=== PATIENT | male | born 1975 | race Caucasian/White ===

== ENCOUNTER 2017-04-27 13:14 | Emergency (ER) | payer OTHER ==
--- NOTE | 2017-04-27 15:17 | RAD ---
HISTORY: Subacute trauma COMPARISONS: None TECHNIQUE: Multiple contiguous axial CT scans were obtained of the head without intravenous contrast. FINDINGS: HEMORRHAGE/INFARCT: There is no hemorrhage or acute infarct. MASSES/SHIFT: There is no mass or shift. EXTRA-AXIAL SPACES: There are no extra-axial fluid collections. SULCI AND VENTRICLES: The sulci and ventricles are normal in size and position for the patient's stated age. CEREBRUM: There are no focal parenchymal abnormalities. BRAINSTEM: There are no focal parenchymal abnormalities. CEREBELLUM: There are no focal parenchymal abnormalities. VESSELS: The vessels are grossly normal. PARANASAL SINUSES: The paranasal sinuses are clear. ORBITS: The orbits are unremarkable. BONES AND SOFT TISSUE: No bone or soft tissue abnormalities are noted. OTHER: None IMPRESSION: NO ACUTE INTRACRANIAL PATHOLOGY.
--- NOTE | 2017-04-27 15:19 | RAD ---
HISTORY: Neck pain, subacute trauma COMPARISONS: None TECHNIQUE: Multiple contiguous axial CT scans were obtained of the cervical spine without intravenous contrast, with coronal and sagittal multiplanar reformations. FINDINGS: BRAIN: The visualized brain is unremarkable CENTRAL CANAL: Evaluation of the central canal is limited on CT technique; however, there is no obvious canalicular mass or epidural hemorrhage. ALIGNMENT: The alignment is normal, without subluxation or dislocation. VERTEBRAL BODIES: The odontoid process is intact. The atlantoaxial intervals are symmetric. The vertebral bodies are normal in attenuation, without fracture. JOINTS: There is mild uncovertebral and facet hypertrophy. MUSCULATURE: Unremarkable INTERVERTEBRAL DISCS: There is diffuse loss of intervertebral disc height. AXIAL IMAGES: On axial images, there is mild neural foraminal narrowing at C4-C5 and C6-C7. There is no significant osseous central canal stenosis. SOFT TISSUES: The visualized soft tissues of the neck are unremarkable. The prevertebral fat stripe is preserved. OTHER: None. IMPRESSION: DEGENERATIVE DISC DISEASE AND OSTEOARTHRITIS, WITHOUT ACUTE OSSEOUS INJURY TO THE CERVICAL SPINE
[2017-04-27] MEDS ORDERED: Methocarbamol TAB* 500 MG PO ONE (15:27)
[2017-04-27] MEDS ORDERED: Dexamethasone TAB* 6 MG PO ONE (15:28)
[2017-04-27] MEDS ORDERED: Ibuprofen TAB* 800 MG PO ONE (15:28)
--- NOTE | 2017-04-27 15:32 | ED ---
Neck Pain - HPI Summary HPI Summary: 41M presents with neck pain since last night. He was benching for the first time in years and lifted 230 pounds. He states he struck the back of his head on the bench and felt an immediate pain in his neck. He denies any LOC, nausea or vomiting. He denies any headache, visual changes. He states he has extreme pain in his neck and has not taken anything for his pain. He has limited ROM of his neck due to pain. Today he states he has superficial numbness of his left inner arm that ends at his elbow. He denies any weakness. He is not any blood thinners and has no medical conditions. He denies any chest pain or SOB. - History of Current Complaint Chief Complaint: EDNeckComplaint Stated Complaint: NECK PAIN,NUMBNESS LEFT ARM PAIN Time Seen by Provider: 04/27/17 14:43 Pain Intensity: 8 - Allergies/Home Medications Allergies/Adverse Reactions: Allergies Allergy/AdvReac Type Severity Reaction Status Date / Time No Known Allergies Allergy Verified 04/27/17 17:29 PMH/Surg Hx/FS Hx/Imm Hx Endocrine/Hematology History: Denies: Hx Anticoagulant Therapy Cardiovascular History: Reports: Hx Hypertension Infectious Disease History: No Infectious Disease History: Denies: Traveled Outside the [place] in Last 30 Days - Family History Known Family History: Positive: Other - no history of aneursym - Social History Alcohol Use: Occasionally Substance Use Type: Reports: None Smoking Status (MU): Smoker, Current Status Unknown Review of Systems Negative: Fever Negative: Chest Pain Negative: Shortness Of Breath Positive: Myalgia - neck pain All Other Systems Reviewed And Are Negative: Yes Physical Exam Triage Information Reviewed: Yes Vital Signs On Initial Exam: Initial Vitals Temp Pulse Resp BP Pulse Ox 96.8 F 51 17 106/83 98 04/27/17 13:17 04/27/17 13:17 04/27/17 13:17 04/27/17 13:17 04/27/17 13:17 Vital Signs Reviewed: Yes Appearance: Positive: Pain Distress Skin: Positive: Warm, Dry Head/Face: Positive: Normal Head/Face Inspection Eyes: Positive: Normal, EOMI, GINO, Conjunctiva Clear ENT: Positive: Normal ENT inspection, Pharynx normal, TMs normal Neck: Positive: Other: - tenderness across entire neck with palpable muscle spasms felt, limited ROM of neck Respiratory/Lung Sounds: Positive: Clear to Auscultation, Breath Sounds Present Cardiovascular: Positive: Normal, RRR Musculoskeletal: Positive: Strength/ROM Intact - arms, Other - good pulses, capillary refill< 2 secs Neurological: Positive: Sensory/Motor Intact, Alert, Oriented to Person Place, Time, CN Intact II-III, Reflexes Intact - biceps, triceps - Negley Coma Scale Best Eye Response: 4 - Spontaneous Best Motor Response: 6 - Obeys Commands Best Verbal Response: 5 - Oriented Diagnostics - Vital Signs Vital Signs Temp Pulse Resp BP Pulse Ox 04/27/17 14:30 96.8 F 51 17 106/83 98 04/27/17 13:17 96.8 F 51 17 106/83 98 - Laboratory Lab Statement: Any lab studies that have been ordered have been reviewed, and results considered in the medical decision making process. - CT brain CT Interpretation: No Acute Changes - IMPRESSION: NO ACUTE INTRACRANIAL PATHOLOGY. CT Interpretation Completed By: Radiologist neck CT Interpretation: Positive (See Comments) - IMPRESSION: DEGENERATIVE DISC DISEASE AND OSTEOARTHRITIS, WITHOUT ACUTE OSSEOUS INJURY TO THE CERVICAL SPINE CT Interpretation Completed By: Radiologist Neck Course/Dx - Course Course Of Treatment: 41M presents with neck pain since last night. He was benching for the first time in years and lifted 230 pounds. He states he struck the back of his head on the bench and felt an immediate pain in his neck. He denies any LOC, nausea or vomiting. He denies any headache, visual changes. He states he has extreme pain in his neck. Today he states he has superficial numbness of his left inner arm that ends at his elbow. He denies any weakness. On exam tender across entire neck. no weakness noted on arms, biceps reflex intact. CT shows degenerative changes. prision requesting MRI. discussed with dr elliott due to having sudden onset of numbness would consider it neuro deficit so should get MRI. patient signed out to Emily Burnett pending MRI. - Diagnoses Differential Dx/HQI/PQRI: Positive: Cervical Fracture, Sprain, Strain Provider Diagnoses: Neck pain Discharge - Discharge Plan Condition: Stable Disposition: HOME Patient Education Materials: Cervical Strain (ED) Referrals: Nancie BLOOM,Dg Camp [Primary Care Provider] - Additional Instructions: You appear to have a cervical strain. This may be treated with rest, ice, and ibuprofen 600mg every 6 hours alternating with acetaminophen 650mg every 6 hours. A muscle relaxer may be taken as needed as well but note this may cause drowsiness - do not operate machinery while taking. Avoid aggressive neck movements but gentle stretching is encouraged. No lifting any amount of weight until cleared by PCP. *If you develop weakness of your upper extremities, return to ED
--- NOTE | 2017-04-27 20:51 | RAD ---
Indication: Neck pain after bench pressing 250 pounds. Numbness down the LEFT arm. Comparison: Cervical spine CT of the same date. Technique: [employer] 1.5 Saige [id number] with GEM suite. Noncontrast MRI cervical spine. Report: The cervical spinal cord is normal in patterns of signal intensity. No conspicuous spinal cord lesions or syringohydromyelia. Bone marrow signal is normal throughout. Negative for fracture or spondylolysis at any level. Normal vertebral alignment accounting for exam positioning without spondylolisthesis or subluxation at any level. C2-C3: Unremarkable for age. C3-C4: Unremarkable for age. C4-C5: Mild disc space narrowing. Negative for disc herniation. Uncinate process spurring results in mild bilateral foraminal stenosis. C5-C6: Mild disc space narrowing and minimal dorsal spondylitic ridging. Negative for acquired central canal stenosis. Uncinate process spurring results in mild RIGHT foraminal stenosis. C6-C7: Mild disc space narrowing and mild dorsal disc osteophyte complex. Negative for acquired central canal stenosis. Uncinate process spurring results in moderate RIGHT foraminal stenosis. C7-T1: Unremarkable intervertebral disc. Mild facet joint osteoarthritis results in mild bilateral foraminal stenosis. No compelling suggestion of posterior ligament injury. IMPRESSION: 1. No evidence for cervical spine fracture or malalignment. 2. Degenerative spondylosis and facet joint osteoarthritis. 3. Negative for acquired central canal stenosis at any level. 4. Multilevel predominant mild foraminal stenosis and moderate RIGHT unilateral foraminal stenosis at C6-C7 as described.
[2017-04-27 21:36] VITALS: BP 108/71
== END 2017-04-27 22:07 | disposition home or self-care (01) ==
LOC: ED 13:14
DX: M54.2 Cervicalgia (principal); M50.33 Other cervical disc degeneration, cervicothoracic region
CPT/HCPCS: 70450; 72125; 72141; 99282; A9270-GY